=== PATIENT | female | born 1940 | race Caucasian/White ===

== ENCOUNTER → 2021-02-09 | Outpatient (CLI) | payer MEDICARE, BC ==
[~2021-02-09] MED LIST: ASA81BEC PO; BACTRIM DS TAB1 EACH PO; CIPROFLOXACIN500 M1 PO; CRANBERRY200 MG PO; MELOXICAM7.5 MG PO; NORVASC10 MG PO; VASOTEC10 MG PO
== END ==
LOC: M.WC 10:00
PROVIDERS: ATTEND Surgery
DX: L97.812 Non-pressure chronic ulcer of other part of right lower leg with fat layer exposed (principal); L89.892 Pressure ulcer of other site, stage 2; L03.115 Cellulitis of right lower limb; I89.0 Lymphedema, not elsewhere classified; S21.002D Unspecified open wound of left breast, subsequent encounter; I87.2 Venous insufficiency (chronic) (peripheral); I10 Essential (primary) hypertension; H40.9 Unspecified glaucoma; F41.9 Anxiety disorder, unspecified; F32.9 Major depressive disorder, single episode, unspecified; Z79.82 Long term (current) use of aspirin; Z79.899 Other long term (current) drug therapy; Z90.710 Acquired absence of both cervix and uterus; Z98.890 Other specified postprocedural states; X58.XXXD Exposure to other specified factors, subsequent encounter

== ENCOUNTER → 2021-02-16 | Outpatient (CLI) | payer MEDICARE, BC | LOC: M.WC 08:37 | PROVIDERS: ATTEND Surgery | DX: L97.812 Non-pressure chronic ulcer of other part of right lower leg with fat layer exposed (principal); L89.892 Pressure ulcer of other site, stage 2; L03.115 Cellulitis of right lower limb; I89.0 Lymphedema, not elsewhere classified; S21.002D Unspecified open wound of left breast, subsequent encounter; I87.2 Venous insufficiency (chronic) (peripheral); I10 Essential (primary) hypertension; H40.9 Unspecified glaucoma; F41.9 Anxiety disorder, unspecified; F32.9 Major depressive disorder, single episode, unspecified; Z79.82 Long term (current) use of aspirin; Z90.710 Acquired absence of both cervix and uterus; X58.XXXD Exposure to other specified factors, subsequent encounter ==

== ENCOUNTER → 2021-02-23 | Outpatient (CLI) | payer MEDICARE, BC | LOC: M.WC 08:46 | PROVIDERS: ATTEND Surgery | DX: L97.812 Non-pressure chronic ulcer of other part of right lower leg with fat layer exposed (principal); L89.892 Pressure ulcer of other site, stage 2; L03.115 Cellulitis of right lower limb; I89.0 Lymphedema, not elsewhere classified; S21.002D Unspecified open wound of left breast, subsequent encounter; I87.2 Venous insufficiency (chronic) (peripheral); I10 Essential (primary) hypertension; H40.9 Unspecified glaucoma; F41.9 Anxiety disorder, unspecified; F32.9 Major depressive disorder, single episode, unspecified; Z79.82 Long term (current) use of aspirin; Z90.710 Acquired absence of both cervix and uterus; X58.XXXD Exposure to other specified factors, subsequent encounter ==

== ENCOUNTER → 2021-03-02 | Outpatient (CLI) | payer MEDICARE, BC | LOC: M.WC 09:20 | PROVIDERS: ATTEND Surgery | DX: L97.812 Non-pressure chronic ulcer of other part of right lower leg with fat layer exposed (principal); S21.002D Unspecified open wound of left breast, subsequent encounter; L89.892 Pressure ulcer of other site, stage 2; L03.115 Cellulitis of right lower limb; I89.0 Lymphedema, not elsewhere classified; I87.2 Venous insufficiency (chronic) (peripheral); I10 Essential (primary) hypertension; H40.9 Unspecified glaucoma; F41.9 Anxiety disorder, unspecified; F32.9 Major depressive disorder, single episode, unspecified; Z79.82 Long term (current) use of aspirin; Z90.710 Acquired absence of both cervix and uterus; X58.XXXD Exposure to other specified factors, subsequent encounter ==

== ENCOUNTER → 2021-03-09 | Outpatient (CLI) | payer MEDICARE, BC | LOC: M.WC 09:01 | PROVIDERS: ATTEND Surgery | DX: L97.812 Non-pressure chronic ulcer of other part of right lower leg with fat layer exposed (principal); L03.115 Cellulitis of right lower limb; S21.002D Unspecified open wound of left breast, subsequent encounter; I89.0 Lymphedema, not elsewhere classified; I10 Essential (primary) hypertension; H40.9 Unspecified glaucoma; F41.9 Anxiety disorder, unspecified; F32.9 Major depressive disorder, single episode, unspecified; Z79.82 Long term (current) use of aspirin; Z79.899 Other long term (current) drug therapy; X58.XXXD Exposure to other specified factors, subsequent encounter ==

== ENCOUNTER → 2021-03-16 | Outpatient (CLI) | payer MEDICARE, BC | LOC: M.WC 09:23 | PROVIDERS: ATTEND Surgery | DX: L97.812 Non-pressure chronic ulcer of other part of right lower leg with fat layer exposed (principal); L03.115 Cellulitis of right lower limb; S21.002D Unspecified open wound of left breast, subsequent encounter; I89.0 Lymphedema, not elsewhere classified; I10 Essential (primary) hypertension; H40.9 Unspecified glaucoma; F41.9 Anxiety disorder, unspecified; F32.9 Major depressive disorder, single episode, unspecified; Z79.82 Long term (current) use of aspirin; X58.XXXD Exposure to other specified factors, subsequent encounter ==